=== PATIENT | female | born 1980 | race Caucasian/White ===

== ENCOUNTER 2018-10-20 15:00 | Emergency (ER) | payer MEDICAID ==
[2018-10-20 15:39] LABS: PLATELET COUNT 300 10^3/uL (150-400)
--- NOTE | 2018-10-20 15:40 | EDPHY ---
H & P Stated Complaint: Aching CP @1100, substernal c nausea, Hx last couple months. Time Seen by Provider: 10/20/18 15:23 HPI/ROS: CHIEF COMPLAINT: Chest pain HISTORY OF PRESENT ILLNESS: 38-year-old female presents with chest pain. She was standing at a [employer]avez register at work, when she developed chest tightness. The chest tightness was moderate and lasted approximately 5 min. She continues to have a very dull sensation in her chest, not painful. No associated shortness of breath, dizziness or diaphoresis. History of prior similar episode 2 weeks ago while in an argument with her . The chest pain at that time lasted 2-3 minutes and then completely resolved. Patient is breast- feeding. Cardiac risk factors positive for family history, father had heart disease in his 50s. Nonsmoker; no hypertension, diabetes or hypercholesterolemia. REVIEW OF SYSTEMS: complete 10 point ROS reviewed and is negative except for the noted elements in the HPI - Personal History Current Tetanus/Diphtheria Vaccine: Yes - Medical/Surgical History Hx Asthma: No Hx Chronic Respiratory Disease: No Hx Diabetes: No Hx Cardiac Disease: No Hx Renal Disease: No Hx Cirrhosis: No Hx Alcoholism: No Hx HIV/AIDS: No Hx Splenectomy or Spleen Trauma: No Other PMH: DENIES PMH OR PSH - Social History Smoking Status: Never smoked Alcohol Use: Sober Drug Use: None - Physical Exam Exam: General Appearance: Alert, pleasant Eyes: Pupils equal and round, no conjunctival pallor ENT, Mouth: Mucous membranes moist Neck: Normal inspection Respiratory: Lungs are clear to auscultation Cardiovascular: Regular rate and rhythm, no murmur Gastrointestinal: Abdomen is soft and nontender Neurological: A&O, nonfocal exam Skin: Warm and dry, no rash Extremities: Nontender, no pedal edema Psychiatric: Mood and affect normal Constitutional: Initial Vital Signs Temperature (C) 36.7 C 10/20/18 15:11 Heart Rate 87 10/20/18 15:11 Respiratory Rate 18 10/20/18 15:11 Blood Pressure 132/87 H 10/20/18 15:11 O2 Sat (%) 96 10/20/18 15:11 O2 Delivery Mode Room Air Allergies/Adverse Reactions: No Known Allergies Allergy (Verified 10/20/18 15:11) Home Medications: Medication Instructions Recorded Ibuprofen 800 mg PO TID #30 tablet 10/16/15 Medical Decision Making - Diagnostics EKG Interpretation: EKG interpreted by me reveals NSR, rate 85, borderline LAD, no ST/T changes. Interpretation: otherwise normal EKG ED Course/Re-evaluation: This pt presents with atypical cp of brief duration. stat EKG reveals no ischemic changes. Troponin normal (4.5hrs p cp). Patient declines chest x-ray. She clearly understands that there are multiple etiologies for chest pain that I will be unable to diagnose, some of which are serious. She accepts the risks. Shared clinical decision-making, Heart score 1 (for family history), accepts risks, will d/c home. Asymptomatic on d/c. f/ u with [facility] in 1-2 days. Differential Diagnosis: Differential diagnosis includes though it is not limited to pneumonia, pneumothorax, pulmonary embolism, aortic dissection, pericarditis, acute coronary syndrome. - Data Points Laboratory Results: Laboratory Results 10/20/18 15:30 10/20/18 15:30 Point of Care Test Results: Chemistry 10/20/18 15:36 POC Troponin I 0.00 ng/mL ng/mL (0.00-0.08) Departure - Departure Disposition: Home, Routine, Self-Care Clinical Impression: Chest pain Condition: Good Instructions: Chest Pain (ED) Additional Instructions: 1. Based upon the testing done in the Emergency Department today we see no evidence of a heart attack. 2. We are unable to fully exclude coronary artery disease based upon the testing available in the Emergency Department. 3. For this reason, we would like you to be seen by cardiology for consideration of additional testing within the next 3 days. 4. Please contact the luggage repairer you have been referred to schedule this appointment as soon as possible. Their offices are typically open from 8:30am- 5pm M-F. 5. Please return to the Emergency Department immediately for any recurrent chest pain, difficulty breathing or other concerns. Referrals: Bravo Downs MD [Medical Doctor] - As per Instructions
[2018-10-20 18:13] VITALS: BP 130/76
--- NOTE | 2018-10-20 19:15 | CPEKG ---
Test Reason : OPEN Blood Pressure : / mmHG Vent. Rate : 085 BPM Atrial Rate : 085 BPM P-R Int : 146 ms QRS Dur : 087 ms QT Int : 370 ms P-R-T Axes : 058 -18 017 degrees QTc Int : 440 ms Sinus rhythm Borderline left axis deviation Confirmed by Sin Alvarado ([id number]) on 10/20/2018 7:15:26 PM Referred By: Dorothea Reynaga Confirmed By:Sin Alvarado
== END 2018-10-20 18:11 | disposition home or self-care (01) ==
DX: R07.9 Chest pain, unspecified (principal)
CPT/HCPCS: 84484-ER